=== PATIENT | female | born 1995 | race Caucasian/White ===

== ENCOUNTER 2019-04-27 10:43 | Emergency (ER) | payer OTHER, MEDICAID ==
[~2019-04-27] VITALS: Ht 160 cm; Wt 81.7 kg
[~2019-04-27 10:43] MED LIST: AMOXIL 875 MG875 M1 PO; NOHOMEMEDICATIONS
[2019-04-27] MEDS ORDERED: MOBIC7.5 MG PO (11:24)
[2019-04-27 13:15] VITALS: BP 120/65
== END 2019-04-27 13:15 | disposition home or self-care (01) ==
LOC: M.ERS 10:43
DX: S16.1XXA Strain of muscle, fascia and tendon at neck level, initial encounter (principal); M54.5 Low back pain; V49.49XA Driver injured in collision with other motor vehicles in traffic accident, initial encounter; Y93.89 Activity, other specified; Y92.89 Other specified places as the place of occurrence of the external cause; Y99.8 Other external cause status

== ENCOUNTER 2019-07-20 10:22 | Emergency (ER) | payer OTHER, MEDICAID ==
[~2019-07-20] VITALS: Ht 157.5 cm; Wt 86.2 kg
[~2019-07-20 10:22] MED LIST changes: +MOBIC7.5 MG PO
[2019-07-20 11:18] VITALS: BP 128/77
== END 2019-07-20 11:18 | disposition home or self-care (01) ==
LOC: M.ERS 10:22
DX: S09.8XXA Other specified injuries of head, initial encounter (principal); H11.31 Conjunctival hemorrhage, right eye; Y92.89 Other specified places as the place of occurrence of the external cause; Y93.89 Activity, other specified; Y99.8 Other external cause status

== ENCOUNTER 2020-10-04 08:45 | Emergency (ER) | payer OTHER, MEDICAID ==
[~2020-10-04] VITALS: Ht 157.5 cm; Wt 83.9 kg
[2020-10-04 09:13] LABS: ABSOLUTE LYMPHOCYTES 2.2 thou/uL (0.8-5.3); ABSOLUTE MONOCYTES 0.5 thou/uL (0.0-1.2); ABSOLUTE NEUTROPHILS 2.9 thou/uL (1.6-8.1); BASOPHILS 0.5 %; EOSINOPHILS 0.7 %; HEMATOCRIT 37.8 % (37.0-47.0); HEMOGLOBIN 12.5 gm/dL (12.0-15.0); LYMPHOCYTES 38.8 %; MCH 29.9 pg (26.0-34.0); MCHC 32.9 g/dL (28.0-37.0); MCV 90.8 fL (80.0-100.0); MONOCYTES 8.8 %; NUCLEATED RBCS 0 /100WBC; PLATELET COUNT* 260 thou/uL (150-400); POLYS 51.2 %; RBC 4.17 mil/uL (4.20-5.00); RDW-CV 13.7 % (10.5-14.5); WBC 5.7 thou/uL (4.0-11.0)
[2020-10-04 09:21] LABS: CALCIUM 8.7 mg/dL (8.5-10.1); CREATININE 0.8 mg/dL (0.6-1.3); POTASSIUM 3.6 mmol/L (3.5-5.1)
[2020-10-04 09:25] LABS: ALBUMIN 3.5 g/dL (3.4-5.0); TOTAL BILIRUBIN 0.4 mg/dL (<0.1-1.0); TOTAL PROTEIN 7.5 g/dL (6.4-8.2)
[2020-10-04] MEDS ORDERED: NORCO 5-325 TA1 EAC2 PO (10:32)
[2020-10-04 10:42] VITALS: BP 122/80
--- NOTE | 2020-10-04 17:30 | EKG ---
[place] [address] ELECTROCARDIOGRAM REPORT Name: SWATHI CONCEPCION I Room: [facility]#: [id number] Admission: 10/04/20 Attend Phys: Discharge: 10/04/20 Date of : 89 Date of Service: 10/04/20 0849 Report #: [id number] THIS REPORT FOR: //name// [facility] ED Test Date: 2020-10-04 Test Time: 08:49:25 Pat Name: SWATHI CONCEPCION Department: Room: Gender: [employer]: JULIO CÉSAR : 1995 Requested By: Karson Larry Order Number: [id number] MD: Modesto Hope Measurements Intervals [place] Rate: 77 P: 9 ID: 132 QRS: 23 QRSD: 90 T: 7 QT: 384 QTc: 435 Interpretive Statements Sinus rhythm No previous ECG available for comparison Electronically Signed On 10-04-2020 17:30:06 [employer] by Modseto Hope [email or web address] <ELECTRONICALLY SIGNED> By: Modesto Hope MD, [facility] 10/04/20 1730 0849 0849 Modesto Hope MD, FACC /EPI
== END 2020-10-04 10:44 | disposition home or self-care (01) ==
LOC: M.ERS 08:45
PROVIDERS: Emergency Medicine Emergency Medical Services
DX: R07.89 Other chest pain (principal); M54.2 Cervicalgia